=== PATIENT | male | born 2005 | race Two or more races ===

== ENCOUNTER 2024-03-10 15:33 | Observation (INO) ==
--- NOTE | 2024-03-10 16:18 | Emergency Department Note ---
ED Provider Note History of Present Illness Chief Complaint: Abdominal Pain Stated Complaint: ABDOMINAL PAIN Time Seen by Provider: 03/10/24 16:16 Source: patient Mode of arrival: ambulatory Limitations: no limitations Patient is a 18-year-old male who presents to the emergency department with complaints of abdominal pain, primarily around his mid abdomen area. Patient notes associated nausea but denies any vomiting and denies fevers at home. Home Medications Medication Instructions Recorded Confirmed Type Saccharomyces boulardii 250 mg 250 mg PO BID #20 caps 02/08/22 Rx capsule (Florastor) Allergies Allergy/AdvReac Type Severity Reaction Status Date / Time No Known Allergies Allergy Unverified 03/10/24 21:34 Past Med/Surg History Problem List Acute appendicitis (Acute) Medical History No active medical problems Family History Other Family history non-contributory Social History Smoking Status: Never smoker Preferred Language: Slovenian Feels Safe at Home: Yes Physical Exam Vital Signs Vital Signs - 24 hr 03/10/24 15:34 03/10/24 18:26 03/10/24 21:42 Temperature 36.8 C 36.2 C L Temperature Source Temporal Artery Scan Temporal Artery Scan Pulse Rate 91 H Pulse Rate [Apical] 99 H Pulse Rate [Finger] 78 Pulse Rhythm [Apical] Regular Pulse Strength [Apical] Normal Respiratory Rate 15 16 19 Respiratory Effort / Characteristics Non-Labored Spontaneous Non-Labored Non-Labored Spontaneous Respiratory Depth Normal Normal Normal Respiratory Pattern Regular Regular Blood Pressure 155/89 H Blood Pressure [Right Arm] 122/70 124/46 L Blood Pressure Mean 111 Blood Pressure Mean [Right Arm] 87 72 Blood Pressure Position [Right Arm] Semi-fowlers Pulse Oximetry 98 95 100 Oxygen Delivery Method Room Air Room Air Oxymask Oxygen Flow Rate 6 Sepsis Recent Fever Within 48 Hours No Sepsis New/Unexplained Change in Mental Status No Sepsis Action Taken by Nursing No Action Required 03/10/24 21:50 03/10/24 22:00 03/10/24 22:10 Temperature Temperature Source Pulse Rate Pulse Rate [Apical] 98 H 83 83 Pulse Rate [Finger] Pulse Rhythm [Apical] Regular Regular Regular Pulse Strength [Apical] Normal Normal Normal Respiratory Rate 22 23 19 Respiratory Effort / Characteristics Non-Labored Spontaneous Non-Labored Spontaneous Non-Labored Spontaneous Respiratory Depth Normal Normal Normal Respiratory Pattern Regular Regular Regular Blood Pressure Blood Pressure [Right Arm] 117/76 123/70 129/65 Blood Pressure Mean Blood Pressure Mean [Right Arm] 89 87 86 Blood Pressure Position [Right Arm] Semi-fowlers Semi-fowlers Semi-fowlers Pulse Oximetry 100 96 96 Oxygen Delivery Method Oxymask Room Air Room Air Oxygen Flow Rate 6 Sepsis Recent Fever Within 48 Hours Sepsis New/Unexplained Change in Mental Status Sepsis Action Taken by Nursing 03/10/24 22:20 03/10/24 22:30 Temperature 36.7 C Temperature Source Temporal Artery Scan Pulse Rate Pulse Rate [Apical] 73 87 Pulse Rate [Finger] Pulse Rhythm [Apical] Regular Regular Pulse Strength [Apical] Normal Normal Respiratory Rate 18 12 Respiratory Effort / Characteristics Non-Labored Spontaneous Non-Labored Spontaneous Respiratory Depth Normal Normal Respiratory Pattern Regular Regular Blood Pressure Blood Pressure [Right Arm] 104/74 112/68 Blood Pressure Mean Blood Pressure Mean [Right Arm] 84 82 Blood Pressure Position [Right Arm] Semi-fowlers Semi-fowlers Pulse Oximetry 99 99 Oxygen Delivery Method Nasal Cannula Nasal Cannula Oxygen Flow Rate 2 2 Sepsis Recent Fever Within 48 Hours Sepsis New/Unexplained Change in Mental Status Sepsis Action Taken by Nursing VITAL SIGNS - Vital signs and nursing notes were reviewed. GENERAL -18-year-old male appearing his stated age who is in no acute distress. Communicates well with provider and answers questions appropriately. HEAD - NC/AT. EYES - PERRL with EOMI bilaterally. Conjunctiva pink and moist with no injection noted. LUNGS - Chest wall symmetric without accessory muscle use, intercostals retractions, or central cyanosis. Breath sounds clear throughout all ordoñez. No wheezes, rales, or rhonchi appreciated. CARDIAC - RRR with S1/S2. No murmur, rubs, or gallops appreciated. ABDOMEN - Abdominal contour without pulsations or visible masses. Negative [place]'s or Boateng Jacobson's Signs. BS normoactive all four quadrants. Increased tenderness to palpation appreciated over entire abdomen. No guarding. No rebound Tenderness. No palpable masses, hepatosplenomegaly, or ascites noted. NEUROLOGIC -Sensory intact to light touch throughout. PSYCH - A&Ox3 and cooperates fully with examiner. Pt is very pleasant and interacts well with examiner. Course Administered Medications Fentanyl Citrate (Fentanyl Citrate Pf 100 Mcg/2 Ml Vial) 50 mcg IV Q5M PRN PRN Reason: PACU Use Only-Pain Stop: 03/11/24 04:36 Last Admin: 03/10/24 22:15 Dose: 50 mcg Documented By: Admin: 03/10/24 22:08 Dose: 50 mcg Documented By: SED Discontinued Medications Bupivacaine HCl/Epinephrine Bitart (Bupivacaine/Epinephrine 0.5% Mpf 1:200,000 30 Ml Vial) Confirm Administered Dose 30 ml .ROUTE .STK-MED ONE Stop: 03/10/24 20:19 Last Admin: 03/10/24 21:30 Dose: 25 ml Documented By: DA Sodium Chloride (Nss) 1,000 mls @ 999 mls/hr IV .Q1H1M ONE Stop: 03/10/24 17:33 Last Infusion: 03/10/24 18:34 Dose: Infused Documented By: Admin: 03/10/24 16:53 Dose: 999 mls/hr Documented By: ARNOLD Acetaminophen (Ofirmev) 1,000 mg in 100 mls @ 400 mls/hr IV NOW STA Stop: 03/10/24 16:47 Last Infusion: 03/10/24 17:28 Dose: Infused Documented By: Admin: 03/10/24 16:53 Dose: 400 mls/hr Documented By: ARNOLD Cefoxitin Sodium 2,000 mg/ (Dextrose) 50 mls @ 100 mls/hr IV ONCE ONE; Protocol Stop: 03/10/24 22:00 Last Admin: 03/10/24 21:04 Dose: 100 mls/hr Documented By: GERMAN Ioversol (Optiray 320 100ml) 93 ml IV ONCE ONE Stop: 03/10/24 18:02 Last Admin: 03/10/24 18:01 Dose: 93 ml Documented By: MICHELLE Ondansetron HCl (Ondansetron Inj 2 Mg/Ml 2 Ml Vial) 4 mg IV NOW STA Stop: 03/10/24 16:34 Last Admin: 03/10/24 16:53 Dose: 4 mg Documented By: ARNOLD Medical Decision Making Differential Diagnosis Differential diagnoses includes gastritis, gastroenteritis, IBS, small bowel obstruction, pancreatitis, peritonitis, constipation, abdominal abcess, among others. Medical Records Attestation: I reviewed the patient's medical records. Home Medications was personally reviewed by me Laboratory Data Attestation: I reviewed the patient's lab results. 03/10/24 16:01 03/10/24 16:01 Lab Results 03/10/24 03/10/24 Range/Units 16:01 19:10 WBC 12.40 H (4.8-10.8) K/ul RBC 5.57 (4.70-6.10) M/uL Hgb 16.0 (14.0-18.0) g/dl Hct 48.2 (42.0-52.0) % MCV 86.5 (80.0-100.0) fL MCH 28.7 (25.0-34.0) pg MCHC 33.2 (32.0-36.0) g/dL RDW Std Deviation 38.0 (36.4-46.3) fL RDW Coeff of Efe 11.9 (11.5-14.5) % Plt Count 236 (130-400) K/uL MPV 9.9 (9.4-12.4) fL Immature Gran % (Auto) 0.4 % Neut % (Auto) 75.3 % Lymph % (Auto) 16.1 % [place] % (Auto) 5.8 % Eos % (Auto) 2.2 % Baso % (Auto) 0.2 % Neut # (Auto) 9.33 H (1.40-6.50) K/uL Lymph # (Auto) 2.00 (1.20-3.40) K/uL [place] # (Auto) 0.72 H (0.11-0.59) K/uL Eos # (Auto) 0.27 (0.00-0.50) K/uL Baso # (Auto) 0.03 (0.00-0.20) K/uL Immature Gran # (Auto) 0.05 (0.01-0.20) K/uL Sodium 139 (136-145) mmol/L Potassium 3.7 (3.5-5.1) mmol/L Chloride 103 (98-107) mmol/L Carbon Dioxide 29 (21-32) mmol/L Anion Gap 7 (3-11) BUN 12 (6-23) mg/dl Creatinine 1.05 (0.6-1.4) mg/dl Est Cr Clr Drug Dosing 118.7 ml/min Est GFR ( Amer) 117.9 ml/min Est GFR (Non-Af Amer) 101.7 ml/min BUN/Creatinine Ratio 11.4 (10-20) Glucose 92 (70-99(Fasting)) mg/dl Calcium 9.7 (8.6-10.3) mg/dl Total Bilirubin 0.9 (0.2-1.0) mg/dl AST 21 (13-39) U/L ALT 26 (7-52) U/L Alkaline Phosphatase 67 (34-104) U/L Total Protein 7.5 (6.0-8.3) gm/dl Albumin 4.7 (3.4-5.0) gm/dl Globulin 2.8 (2.5-4.0) gm/dl Albumin/Globulin Ratio 1.7 (0.9-2) Lipase 10 L (11-82) U/L Urine Color Yellow Urine Appearance Clear (Clear) Urine pH 6.5 (4.5-7.5) Ur Specific [place] 1.021 (1.000-1.030) Urine Protein Negative (Negative) Urine Glucose (UA) Negative (Negative) Urine Ketones Negative (Negative) Urine Blood Negative (Negative) Urine Nitrite Negative (Negative) Urine Bilirubin Negative (Negative) Urine Urobilinogen Negative (Negative) Ur Leukocyte Esterase Negative (Negative) Imaging Data Radiologist's Impression: Abdomen/Pelvis CT 03/10/24 16:17 CR Exam(s): CT ABDOMEN + PELVIS With Contrast IV Amt: 93ml of 320 EXAM: CT Abdomen and Pelvis With Intravenous Contrast CLINICAL HISTORY: Reason for exam: abdominal pain. TECHNIQUE: Axial computed tomography images of the abdomen and pelvis with intravenous contrast. CTDI is 27 mGy and DLP is 1476 mGy-cm. Automated exposure control was utilized for the study. A dose lowering technique was utilized adhering to the principles of ALARA. CONTRAST: Patient received 93ml of 320 of IV contrast COMPARISON: No relevant prior studies available. FINDINGS: ABDOMEN: Liver: Unremarkable. Gallbladder and bile ducts: Unremarkable. Pancreas: Unremarkable. Spleen: Unremarkable. Adrenals: Unremarkable. Kidneys and ureters: Unremarkable. No obstructing stones. No hydronephrosis. Stomach and bowel: Unremarkable. PELVIS: Appendix: Acute appendicitis. The appendix is distended up to 1.2 cm with mucosal hyperemia and periappendiceal fat stranding. No perforation or abscess. Bladder: Unremarkable. Reproductive: Unremarkable as visualized. ABDOMEN and PELVIS: Intraperitoneal space: Unremarkable. No free air. No significant fluid collection. Bones/joints: No acute fracture. Soft tissues: Unremarkable. Vasculature: Unremarkable. Lymph nodes: Unremarkable. IMPRESSION: Acute uncomplicated appendicitis. No perforation or abscess. Communications: Verify Receipt Electronically signed by: Johnathon Adames MD 03/10/24 19:17 PM [facility] Narrative Patient is a 18-year-old male that reports to the emergency department complaints of diffuse abdominal pain. Patient states that his entire abdomen hurts but primarily around his mid abdomen. Patient notes associated nausea and reports 1 bout of emesis. Patient states that he feels that he could be getting dehydrated. Patient denies any pertinent abdominal history or abdominal surgeries. Patient was evaluated by myself and findings were noted in the physical exam above. Patient was ordered IV placement with IV fluids, lab work, and an abdominal CT. Patient's lab work returned with an elevated white blood cell count of 12.4. Otherwise the patient's lab work was unremarkable. Patient notes that he has had relief of his pain with the ordered Tylenol. Patient CT scan of his abdomen and pelvis was interpreted by radiology to show an acute appendicitis. Spoke with Dr. Harry of general surgery who also noted the acute appendicitis on CT scan. Dr. Harry spoke with the patient and made him aware of the appendicitis and that the patient would be going to the OR tonight. Patient verbalized understanding. Patient was taken to the OR by Dr. Harry. Please refer to his documentation for further management of this patient. Impression Acute appendicitis Discharge Plan Visit Data Chief Complaint: Abdominal Pain Stated Complaint: ABDOMINAL PAIN ED Provider: Robin Valentin ED Midlevel Provider: Reyna Madrid Discharge Problem: Acute appendicitis Patient Disposition: Being Evaluated by Surgeon Discharge Instructions Interventions: ED Discharge Assessment Last Done: 03/10/24 20:16 Discharge Problem: Acute appendicitis Qualifiers: Acute appendicitis type: with generalized peritonitis Appendicitis gangrene presence: without gangrene Appendicitis perforation presence: without perforation Appendicitis abscess presence: without abscess Qualified Code(s): K 35.200 - Acute appendicitis with generalized peritonitis, without perforation or abscess
[2024-03-10 16:26] LABS: Basophils # (auto) 0.03 K/uL (0.00-0.20); Basophils % (auto) 0.2 %; Eosinophils # (auto) 0.27 K/uL (0.00-0.50); Eosinophils % (auto) 2.2 %; Hematocrit (blood only) 48.2 % (42.0-52.0); Immature Granulocytes # (auto) 0.05 K/uL (0.01-0.20); Immature Granulocytes % (auto) 0.4 %; Lymphocytes % (auto) 16.1 %; Mean Corpuscular Hemoglobin 28.7 pg (25.0-34.0); Mean Corpuscular Hgb Conc 33.2 g/dL (32.0-36.0); Mean Corpuscular Volume 86.5 fL (80.0-100.0); Mean Platelet Volume 9.9 fL (9.4-12.4); Monocytes # (auto) 0.72 K/uL (0.11-0.59); Monocytes % (auto) 5.8 %; Neutrophils # (auto) 9.33 K/uL (1.40-6.50); Neutrophils % (auto) 75.3 %; Platelet Count 236 K/uL (130-400); RDW Coefficient of Variation 11.9 % (11.5-14.5); Red Blood Count 5.57 M/uL (4.70-6.10)
[2024-03-10 16:37] LABS: Albumin Globulin Ratio 1.7 (0.9-2); Albumin Level 4.7 gm/dl (3.4-5.0); BUN Creatinine Ratio 11.4 (10-20); Bilirubin,Total 0.9 mg/dl (0.2-1.0); Calcium 9.7 mg/dl (8.6-10.3); Creatinine Clr Calc Pharmacy 118.7 ml/min; Est GFR (African American) 117.9 ml/min; Est GFR (Non-African American) 101.7 ml/min; Globulin 2.8 gm/dl (2.5-4.0); Potassium 3.7 mmol/L (3.5-5.1); Total Protein 7.5 gm/dl (6.0-8.3)
[2024-03-10] MEDS: SODIUM CHLORIDE 0.9% 1,000 ML IV ONE (16:53)
[2024-03-10] MEDS: ONDANSETRON INJ 2 MG/ML 2 ML VIAL IV STA (16:53)
[2024-03-10] MEDS: ACETAMINOPHEN 1,000 MG/100 ML VIAL IV STA (16:53)
[2024-03-10] MEDS: OPTIRAY 320 100ml IV ONE (18:01)
--- NOTE | 2024-03-10 19:19 | CT Scan Report ---
Exam(s): CT ABDOMEN + PELVIS With Contrast IV Amt: 93ml of 320 EXAM: CT Abdomen and Pelvis With Intravenous Contrast CLINICAL HISTORY: Reason for exam: abdominal pain. TECHNIQUE: Axial computed tomography images of the abdomen and pelvis with intravenous contrast. CTDI is 27 mGy and DLP is 1476 mGy-cm. Automated exposure control was utilized for the study. A dose lowering technique was utilized adhering to the principles of ALARA. CONTRAST: Patient received 93ml of 320 of IV contrast COMPARISON: No relevant prior studies available. FINDINGS: ABDOMEN: Liver: Unremarkable. Gallbladder and bile ducts: Unremarkable. Pancreas: Unremarkable. Spleen: Unremarkable. Adrenals: Unremarkable. Kidneys and ureters: Unremarkable. No obstructing stones. No hydronephrosis. Stomach and bowel: Unremarkable. PELVIS: Appendix: Acute appendicitis. The appendix is distended up to 1.2 cm with mucosal hyperemia and periappendiceal fat stranding. No perforation or abscess. Bladder: Unremarkable. Reproductive: Unremarkable as visualized. ABDOMEN and PELVIS: Intraperitoneal space: Unremarkable. No free air. No significant fluid collection. Bones/joints: No acute fracture. Soft tissues: Unremarkable. Vasculature: Unremarkable. Lymph nodes: Unremarkable. IMPRESSION: Acute uncomplicated appendicitis. No perforation or abscess. Communications: Verify Receipt Electronically signed by: Johnathon Adames MD 03/10/24 19:17 PM
[2024-03-10 19:24] LABS: Appearance Urine Clear (Clear); Bilirubin Urine Negative (Negative); Blood Urine Negative (Negative); Color Urine Yellow; Glucose Urine UA Negative (Negative); Ketones Urine Negative (Negative); Leukocyte Esterase Urine Negative (Negative); Nitrite Urine Negative (Negative); Protein Urine Negative (Negative); Specific Gravity Urine 1.021 (1.000-1.030); Urobilinogen Urine Negative (Negative); pH Urine 6.5 (4.5-7.5)
--- NOTE | 2024-03-10 19:38 | History & Physical Report ---
Date of Service March 10, 2024 Assessment & Plan (1) Acute appendicitis: Plan 18-year-old gentleman with acute appendicitis. I discussed the risks and benefits of a laparoscopic appendectomy with him. All his questions were answered and he is agreeable to proceed. Consent has been obtained. Will take him to the operating room at the earliest convenience. 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 This began last evening. He did vomit 4 times today. His last meal was at noon. He denies fevers or chills. He denies trouble with bowel movements. The pain is sharp and stabbing. He denies other abdominal surgeries in the past. Home Medications Medication Instructions Recorded Confirmed Type Saccharomyces boulardii 250 mg 250 mg PO BID #20 caps 02/08/22 Rx capsule (Florastor) Past Med/Surg History Problem List Acute appendicitis (Acute) Medical History No active medical problems Family History Other Family history non-contributory Social History Smoking Status: Never smoker Preferred Language: Malian Feels Safe at Home: Yes Review of Systems Review of Systems: All systems reviewed & are unremarkable except as noted in HPI & below Physical Exam Constitutional: WD/WN, vitals as above Eyes: PERRL, conjunctivae normal, anicteric sclerae Neck: trachea midline, no thyromegaly Respiratory: normal respiratory effort; no respiratory distress and no labored breathing Cardiovascular: Rate/Rhythm: regular rate and regular rhythm Gastrointestinal (Abdomen): Inspection/Auscultation: abdomen normal to inspection; abdomen not distended Percussion/Palpation: + abdomen tender ( Right lower and left lower quadrants) and abdomen soft; no guarding and abdomen not rigid Skin: no rashes, warm and dry Psychiatric: A+Ox3, euthymic affect Results & Data Results & Data Vital Signs (Past 12 Hours) Vital Signs Temp Pulse Pulse Resp BP BP Pulse Ox 03/10/24 18:26 78 16 122/70 95 03/10/24 15:34 36.8 C 91 H 15 155/89 H 98 O2 Del Method 03/10/24 18:26 Room Air 03/10/24 15:34 Room Air Laboratory Results 03/10/24 03/10/24 Range/Units 19:10 16:01 WBC 12.40 H (4.8-10.8) K/ul RBC 5.57 (4.70-6.10) M/uL Hgb 16.0 (14.0-18.0) g/dl Hct 48.2 (42.0-52.0) % MCV 86.5 (80.0-100.0) fL MCH 28.7 (25.0-34.0) pg MCHC 33.2 (32.0-36.0) g/dL RDW Std Deviation 38.0 (36.4-46.3) fL RDW Coeff of Efe 11.9 (11.5-14.5) % Plt Count 236 (130-400) K/uL MPV 9.9 (9.4-12.4) fL Immature Gran % (Auto) 0.4 % Neut % (Auto) 75.3 % Lymph % (Auto) 16.1 % [place] % (Auto) 5.8 % Eos % (Auto) 2.2 % Baso % (Auto) 0.2 % Neut # (Auto) 9.33 H (1.40-6.50) K/uL Lymph # (Auto) 2.00 (1.20-3.40) K/uL [place] # (Auto) 0.72 H (0.11-0.59) K/uL Eos # (Auto) 0.27 (0.00-0.50) K/uL Baso # (Auto) 0.03 (0.00-0.20) K/uL Immature Gran # (Auto) 0.05 (0.01-0.20) K/uL Sodium 139 (136-145) mmol/L Potassium 3.7 (3.5-5.1) mmol/L Chloride 103 (98-107) mmol/L Carbon Dioxide 29 (21-32) mmol/L Anion Gap 7 (3-11) BUN 12 (6-23) mg/dl Creatinine 1.05 (0.6-1.4) mg/dl Est Cr Clr Drug Dosing 118.7 ml/min Est GFR ( Amer) 117.9 ml/min Est GFR (Non-Af Amer) 101.7 ml/min BUN/Creatinine Ratio 11.4 (10-20) Glucose 92 (70-99(Fasting)) mg/dl Calcium 9.7 (8.6-10.3) mg/dl Total Bilirubin 0.9 (0.2-1.0) mg/dl AST 21 (13-39) U/L ALT 26 (7-52) U/L Alkaline Phosphatase 67 (34-104) U/L Total Protein 7.5 (6.0-8.3) gm/dl Albumin 4.7 (3.4-5.0) gm/dl Globulin 2.8 (2.5-4.0) gm/dl Albumin/Globulin Ratio 1.7 (0.9-2) Lipase 10 L (11-82) U/L Urine Color Yellow Urine Appearance Clear (Clear) Urine pH 6.5 (4.5-7.5) Ur Specific [place] 1.021 (1.000-1.030) Urine Protein Negative (Negative) Urine Glucose (UA) Negative (Negative) Urine Ketones Negative (Negative) Urine Blood Negative (Negative) Urine Nitrite Negative (Negative) Urine Bilirubin Negative (Negative) Urine Urobilinogen Negative (Negative) Ur Leukocyte Esterase Negative (Negative) Diagnostic Findings Exam(s): CT ABDOMEN + PELVIS With Contrast IV Amt: 93ml of 320 EXAM: CT Abdomen and Pelvis With Intravenous Contrast CLINICAL HISTORY: Reason for exam: abdominal pain. TECHNIQUE: Axial computed tomography images of the abdomen and pelvis with intravenous contrast. CTDI is 27 mGy and DLP is 1476 mGy-cm. Automated exposure control was utilized for the study. A dose lowering technique was utilized adhering to the principles of ALARA. CONTRAST: Patient received 93ml of 320 of IV contrast COMPARISON: No relevant prior studies available. FINDINGS: ABDOMEN: Liver: Unremarkable. Gallbladder and bile ducts: Unremarkable. Pancreas: Unremarkable. Spleen: Unremarkable. Adrenals: Unremarkable. Kidneys and ureters: Unremarkable. No obstructing stones. No hydronephrosis. Stomach and bowel: Unremarkable. PELVIS: Appendix: Acute appendicitis. The appendix is distended up to 1.2 cm with mucosal hyperemia and periappendiceal fat stranding. No perforation or abscess. Bladder: Unremarkable. Reproductive: Unremarkable as visualized. ABDOMEN and PELVIS: Intraperitoneal space: Unremarkable. No free air. No significant fluid collection. Bones/joints: No acute fracture. Soft tissues: Unremarkable. Vasculature: Unremarkable. Lymph nodes: Unremarkable. IMPRESSION: Acute uncomplicated appendicitis. No perforation or abscess. Communications: Verify Receipt Electronically signed by: Johnathon Admaes MD 03/10/24 19:17 PM (1) Acute appendicitis Acute appendicitis type: with generalized peritonitis Appendicitis abscess presence: without abscess Appendicitis gangrene presence: without gangrene Appendicitis perforation presence: without perforation Qualified Code(s): K35.200 - Acute appendicitis with generalized peritonitis, without perforation or abscess
--- NOTE | 2024-03-10 20:35 | Anesthesiology Consultation ---
Date of Service March 10, 2024 Assessment & Plan Chart Review Chart Review: Acceptable Risk for Surgery and Patient NOT seen in Pre Admission Testing Consults Requested none ASA [id number] Proposed Anesthesia Anesthesia Type: General Risk / Benefits Reviewed With: PT / POA / Parent / Guardian, Accepts Plan and Informed Consent Obtained History Surgery Operation Date: 03/10/24 20:30 Proposed Procedures p Laparoscopic Appendectomy - Miguel A Harry MD Height/Weight Height: 5 ft 4 in Weight: 98.2 kg Medications Home Medications Medication Instructions Recorded Confirmed Last Taken Saccharomyces boulardii 250 mg 250 mg PO BID #20 caps 02/08/22 Unknown capsule (Florastor) NPO Date Last Intake of Fluids: 03/10/24 Time Last Intake of Fluids: 12:00 Date Last Intake of Solids: 03/10/24 Time Last Intake of Solids: 12:00 Past Medical History Medical History No active medical problems Exercise / Class Metabolic Activity II 4-5 Yardwork/Stairs/Walk up hill Past Family History Family History Other Family history non-contributory Past Anesthesia History No Hx of Anesthesia Complications and No Family Hx of Anesthesia Complications History of PONV No Hx of PONV and No Hx of Motion Sickness Social History Smoking Status: Never smoker Physical Exam Vital Signs Last Vital Signs Temp 36.8 C 03/10/24 15:34 Pulse 78 03/10/24 18:26 Resp 16 03/10/24 18:26 BP 122/70 03/10/24 18:26 Pulse Ox 95 03/10/24 18:26 O2 Del Method Room Air 03/10/24 18:26 ENMT Mouth: no dentition abnormality Thyromental Distance: > or= 3.5 Finger Breadths Mallampati Class: II Neck normal visual inspection Respiratory normal respiratory effort Auscultation: lungs clear to auscultation bilaterally Cardiovascular Rate/Rhythm: regular rate and regular rhythm Psychiatric Orientation: alert Testing Laboratory Results 03/10/24 16:01 03/10/24 16:01 Urine Color Yellow 03/10/24 19:10 Urine Appearance Clear (Clear) 03/10/24 19:10 Urine pH 6.5 (4.5-7.5) 03/10/24 19:10 Ur Specific [place] 1.021 (1.000-1.030) 03/10/24 19:10 Urine Protein Negative (Negative) 03/10/24 19:10 Urine Glucose (UA) Negative (Negative) 03/10/24 19:10 Urine Ketones Negative (Negative) 03/10/24 19:10 Urine Nitrite Negative (Negative) 03/10/24 19:10 Ur Leukocyte Esterase Negative (Negative) 03/10/24 19:10
[2024-03-10] MEDS ORDERED: PROMETHAZINE HCL 6.25 MG in SODIUM CHLORIDE 0.9% 50 ML IV PRN (20:36)
[2024-03-10] MEDS ORDERED: ATROPINE SULFATE 0.1 MG/ML 10ML SYR IV PRN (20:36)
[2024-03-10] MEDS ORDERED: ONDANSETRON INJ 2 MG/ML 2 ML VIAL IV PRN (20:36)
[2024-03-10] MEDS ORDERED: ePHEDrine sulfate 50 MG/ML AMP IV PRN (20:36)
[2024-03-10] MEDS ORDERED: MIDAZOLAM HCL 1 MG/ML 2ML VIAL ONE (20:38)
[2024-03-10] MEDS ORDERED: fentaNYL citrate PF 100 MCG/2 ML VIAL ONE (20:38)
[2024-03-10] MEDS ORDERED: ROCURONIUM BROMIDE 10 MG/ML 5 ML VIAL IV ONE (20:43)
[2024-03-10] MEDS ORDERED: LIDOCAINE 2% 2 ML VIAL/AMP(20MG/ML) INFIL ONE (20:43)
[2024-03-10] MEDS ORDERED: PROPOFOL IV EMULSION 10 MG/ML 20 ML VIAL IV ONE (20:43)
[2024-03-10] MEDS ORDERED: Patient's ALLERGY Info needs ENTERED STA (20:47)
[2024-03-10] MEDS ORDERED: cefOXitin SOD 1,000 MG VIAL ONE (21:01)
[2024-03-10] MEDS: cefOXitin 2,000 MG in DEXTROSE 5 % MINI-B 50 ML IV ONE (21:04)
[2024-03-10] MEDS ORDERED: MoRPHine SULFATE PF 1 MG/ML 10 ML AMP/VIAL ONE (21:11)
[2024-03-10] MEDS ORDERED: SUGAMMADEX SODIUM 200 MG/2 ML VIAL IV ONE (21:16)
[2024-03-10] MEDS: BUPIVACAINE/EPINEPHRINE 0.5% MPF 1:200,000 30 ML VIAL ONE (21:30)
--- NOTE | 2024-03-10 21:33 | Post Operative Brief Note ---
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
--- NOTE | 2024-03-10 21:34 | Operative Report ---
Post Operative Report Pre & Post Diagnosis Operation Date: 03/10/24 20:30 Pre-Op Diagnosis: Acute appendicitis Post-Op Diagnosis: Acute appendicitis I identified the patient and participated in the time-out.: Yes Procedure Operation Date: 03/10/24 20:30 Actual Procedures p Laparoscopic Appendectomy(Not Applicable) - Miguel A Harry MD Surgeon Miguel A Harry MD Pododermatologist None Estimated Blood Loss 5 Findings Consistent with Post-Op Diagnosis acute appendicitis, no perforation Specimens appendix Drains none Anesthesia Type General Complications none Description of Procedure the patient was taken to the operating room, and placed supine on the operating table. A timeout was performed, perioperative antibiotics were administered, SCD boots were placed. After adequate anesthesia and analgesia was obtained, the abdomen was prepped and draped in the normal sterile fashion. A 1 cm incision was made in the supraumbilical region and carried down to the level of the fascia. A trach hook was used to grasp the fascia and elevated and a varies needle was used to enter the abdominal cavity. The abdomen was insufflated to a pressure of 15 mmHg, and a 5 mm trocar was placed in this location. A 5 mm 30 degree laparoscope was placed into the abdominal cavity, and the abdomen was surveyed. The patient was placed in Trendelenburg and slightly to the left. One 5 mm trocar was placed in the right upper quadrant, and one 12 mm trocar was placed in the left lower quadrant under direct visualization. The right colon was identified and traced down to the cecum. The appendix was identified and elevated anteriorly and medially. A window was created at the base of the appendix with a [place] dissector. The Endo TERESA stapler was used to transect the appendix at its base through noninflamed tissue, and subsequently the mesoappendix. The appendix was placed in an Endo Catch bag, and removed via the left lower quadrant port site. Attention was turned to hemostasis, which was excellent. The abdomen was copiously irrigated and suctioned free, and again hemostasis was found to be excellent. All trochars removed under direct visualization. The abdomen was desufflated. The fascia in the 12 mm port site was closed with a 0 Vicryl suture. The skin was closed with a running 4-0 Monocryl subcuticular stitch. Dermabond was applied. The patient tolerated the procedure without complication, and was transferred in stable condition to the PACU. All instrument, needle, and sponge counts were correct at the end of the case. I attest to the content of the Intraoperative Record and any orders documented therein. Any exceptions are noted below.
--- NOTE | 2024-03-10 21:59 | Anesthesiology Progress Note ---
Date of Service March 10, 2024 Anesthesia Post Procedure Vital Signs Vital Signs: Temp Pulse Pulse Resp BP BP Pulse Ox 03/10/24 18:26 78 16 122/70 95 03/10/24 15:34 36.8 C 91 H 15 155/89 H 98 O2 Del Method 03/10/24 18:26 Room Air 03/10/24 15:34 Room Air Transfer of Care Handoff Completed per policy Notes Mental Status: alert / awake / arousable Patient Amnestic to Procedure: Yes Nausea / Vomiting: adequately controlled Pain: adequately controlled Airway Patency, RR, SpO2: stable & adequate BP & HR: stable & adequate Hydration State: stable & adequate Anesthetic Complications: no major complications apparent
[2024-03-10] MEDS: fentaNYL citrate PF 100 MCG/2 ML VIAL IV PRN (22:08)
[2024-03-10] MEDS ORDERED: PROMETHAZINE 12.5 MG/50.5 ML BAG IV PRN (23:04)
[2024-03-10] MEDS ORDERED: diphenhydrAMINE Capsule 25 MG CAP PO PRN (23:04)
[2024-03-10] MEDS ORDERED: oxyCODONE/ACETAMINOPHEN 5mg/325mg TAB PO PRN ×2 (23:04)
[2024-03-10] MEDS ORDERED: MoRPHine SULFATE 2 MG/ML CARP IV PRN (23:04)
[2024-03-10] MEDS: fentaNYL citrate PF 100 MCG/2 ML VIAL ONE (23:41)
[2024-03-10] MEDS: KETOROLAC 30 MG/ML VIAL IV PRN (23:58)
[2024-03-10] MEDS: ONDANSETRON INJ 2 MG/ML 2 ML VIAL IV PRN (23:58)
[2024-03-11 08:12] VITALS: BP 113/65; PULSE 87; RESP 18; TEMP 98.3; O2SAT 97
[2024-03-11] MEDS: ENOXAPARIN INJ 40 MG/0.4 ML SYR SQ SCH (08:55)
--- NOTE | 2024-03-11 11:06 | Surgery Progress Note ---
Date of Service March 11, 2024 Assessment & Plan (1) Acute appendicitis: Plan: POD #1 s/p laparoscopic appendectomy Doing well Advance diet as tolerated Out of bed ambulation Discharge to home later today Follow-up in clinic in 2 weeks Admission and Anticipated Discharge Date Admission Date: March 10, 2024 Subjective Doing well. Minimal pain. No fevers or chills. No nausea. Physical Exam Physical Exam: AFVSS NCAT NAD, A&O x 3 Abdomen: Soft, minimal tenderness to palpation Nondistended Incisions healing well without erythema or discharge Dermabond in place Results & Data Vital Signs (Past 12 Hours) Vital Signs Temp Pulse Resp BP BP Pulse Ox Pulse Ox 03/11/24 07:41 36.8 C 87 18 113/65 97 03/11/24 03:41 36.7 C 90 14 122/65 95 03/11/24 01:19 36.7 C 106 H 16 107/62 96 03/11/24 00:13 36.6 C 90 15 116/66 93 03/10/24 23:24 36.6 C 81 14 123/68 94 03/10/24 23:20 36.5 C 81 14 123/68 94 03/10/24 23:20 94 O2 Del Method O2 Del Method 03/11/24 07:41 Room Air 03/11/24 03:41 Room Air 03/11/24 01:19 Room Air 03/11/24 00:13 Room Air 03/10/24 23:24 Room Air 03/10/24 23:20 Room Air 03/10/24 23:20 Nasal Cannula (1) Acute appendicitis Acute appendicitis type: with generalized peritonitis Appendicitis abscess presence: without abscess Appendicitis gangrene presence: without gangrene Appendicitis perforation presence: without perforation Qualified Code(s): K35.200 - Acute appendicitis with generalized peritonitis, without perforation or abscess
--- NOTE | 2024-03-11 11:12 | Discharge Summary ---
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 This began last evening. He did vomit 4 times today. His last meal was at noon. He denies fevers or chills. He denies trouble with bowel movements. The pain is sharp and stabbing. He denies other abdominal surgeries in the past. Principal Diagnosis acute appendicitis Discharge Data Allergies Allergy/AdvReac Type Severity Reaction Status Date / Time No Known Allergies Allergy Unverified 03/10/24 21:34 Procedures Performed Operation Date: 03/10/24 20:30 Actual Procedures p Laparoscopic Appendectomy(Not Applicable) - Miguel A Harry MD Ordered Studies 03/10/24 16:17 CT abd pelvis IV con only Stat Hospital Course (1) Acute appendicitis: 18-year-old gentleman presented to the emergency department with acute appendicitis. He was taken to the operating room and underwent a laparoscopic appendectomy, the details of which are dictated in a separate operative note. Postoperatively he was transferred in stable condition to the PACU and subsequently to the floor. DVT prophylaxis was maintained with SCD boots, early ambulation, and subcutaneous Lovenox. Early ambulation was encouraged. His diet was advanced as tolerated. Pain control was with IV and subsequently p.o. pain medication. By the day of discharge, he was tolerating regular diet, not requiring any IV pain medications, was discharged home in stable condition. He will follow-up in clinic in 2 weeks. Total Time Total Time Spent Total Time Spent (In Minutes): 30 minutes Discharge Plan Discharge Items Patient Disposition: Home - Self-Care Reason For Visit: APPENDICITIS Discharge Diagnosis: appendicitis Activity: Per Instructions section Lifting: No more than 25 pounds Sexual Activity: Wait until after follow-up appointment Exercise/Sports: Wait until after follow-up appointment Non-emergency contact: Surgeon Call non-emergency contact if: you have any medication questions, your symptoms worsen, your pain is not controlled, your pain is worsening, your pain is unusual for you, your temperature is above 101.5, your wound has increased redness, your wound has increased drainage and your wound pain has increased Follow-up/Referrals: PCP,NO [Physician] - Diet: Regular Addtl Attending Provider Instructions: Post-Surgical ~Discharge Instructions Activity Recommendations: - lifting limitation: (20 pounds for 2 weeks), - exercise/sex/sports limit: (nonstrenuous for 2 weeks), - driving or machine use limit: (none for 1 week), - Shower/bathe limit: (may shower beginning tomorrow) Diet: - Resume previous diet SPECIAL CARE INSTRUCTIONS: - May shower in 24 hours. Let water run over area and pat dry. - Leave Dermabond in place - Call the surgeon's office with any questions or concerns - - (ex. temperature higher than 101 degrees F, excessive bleeding or pain). MEDICATIONS: - Resume previous medications unless instructed otherwise by your surgeon. - Ibuprofen 600 mg every 6 hours with food - Percocet 1 every 4 hours, as needed for pain FOLLOW UP VISIT: - If not already scheduled, please call the office to schedule a two week follow-up appointment. Office number Pending Studies at Discharge: No Stand-Alone Forms: My [facility], Smoking Cessation Medications and DC Order Prescriptions: New oxycodone-acetaminophen [Percocet] 5-325 mg tablet 1 tab PO Q6H PRN (Reason: pain) Qty: 10 0RF Continued Saccharomyces boulardii [Florastor] 250 mg capsule 250 mg PO BID Qty: 20 0RF Rx Instructions: swallow whole Discharge Orders: Discharge Order (Routine); Ordered 03/11/24 Ordered By: Miguel A Harry Admission Data Admit Date/Time: 03/10/24 21:37 Attending Provider: Miguel A Harry Admit Provider: Miguel A Harry Primary Care Provider: [facility]
== END 2024-03-11 13:10 | disposition home or self-care (01) ==
LOC: ED 15:33 → 3W 20:16 → OR 20:16
DX: K35.200 Acute appendicitis with generalized peritonitis, without perforation or abscess